=== PATIENT | male | born 1955 | race Caucasian/White ===

== ENCOUNTER 2018-08-03 09:41 | Day surgery (SDC) | payer OTHER ==
[~2018-08-03] VITALS: Ht 157.5 cm; Wt 62.5 kg
[2018-08-03] MEDS ORDERED: ATORVASTATIN (10:46)
[2018-08-03] MEDS ORDERED: AMLODIPINE (10:46)
[2018-08-03 10:50] VITALS: Ht 157.5 cm; Wt 62.5 kg
[2018-08-03 11:55] VITALS: BP 142/78; PULSE 51; RESP 24
[2018-08-03 12:45] VITALS: BP 130/82; RESP 16
[2018-08-03] MEDS ORDERED: MIDAZOLAM 1 MG/ML 2 ML INJ ONE ×2 (13:00→13:01)
[2018-08-03] MEDS ORDERED: FENTAnyl 50 MCG/ML VIAL ONE (13:01)
== END 2018-08-03 12:48 | disposition home or self-care (01) ==
LOC: GIL 09:41
PROVIDERS: ATTEND Internal Medicine Gastroenterology
DX: Z12.11 Encounter for screening for malignant neoplasm of colon (principal); K64.9 Unspecified hemorrhoids; K57.30 Diverticulosis of large intestine without perforation or abscess without bleeding; I10 Essential (primary) hypertension
CPT/HCPCS: 45378; J2250; J3010; Z7610